=== PATIENT | male | born 1955 | race African-American/Black ===

== ENCOUNTER 2020-08-07 07:05 | Inpatient (IN) | payer MEDICAID, OTHER ==
[~2020-08-07] VITALS: Ht 175.3 cm; Wt 94.9 kg
[2020-08-07] MEDS ORDERED: ONDANSETRON HCL 4MG/2ML INJ IV STA (07:35)
[2020-08-07] MEDS ORDERED: SODIUM CHLORIDE 0.9% 1,000 ML IV ONE (07:45)
[2020-08-07] MEDS ORDERED: MECLIZINE 25MG TABLET PO ONE (07:45)
[2020-08-07 08:05] LABS: BASOPHILS % 0.6 % (0.0-2.0); EOSINOPHILS % 1.2 % (0.0-5.0); HEMATOCRIT. 35.5 % (42.0-52.0); HEMOGLOBIN. 12.3 g/dL (14.0-18.0); LYMPHOCYTES % 26.7 % (20.0-50.0); MEAN CORPUSCULAR HEMOGLOBIN 31.7 pg (28.0-32.0); MEAN CORPUSCULAR VOLUME 91.1 fL (80.0-94.0); MEAN PLATELET VOLUME 7.1 fl (7.4-10.4); MONOCYTES % 12.4 % (2.0-8.0); NEUTROPHILS % 59.1 % (40.0-76.0); PLATELET 406 x1000/uL (130-400); RED CELL DISTRIBUTION WIDTH 14.9 % (11.6-14.6)
[2020-08-07 08:11] LABS: CHLORIDE 99 mEq/L (98-107)
[2020-08-07] MEDS ORDERED: KETOROLAC 30MG/ML VIAL IV ONE (08:45)
[2020-08-07] MEDS ORDERED: AMLODIPINE 10MG TABLET PO ONE (09:15)
[2020-08-07] MEDS ORDERED: HYDRALAZINE 20MG/ML VIAL IV ONE ×2 (18:15→19:15)
[2020-08-07] MEDS ORDERED: MORPHINE SULFATE 4 MG/ML CPJ (NOT FOR IM USE) IV ONE (19:15)
[2020-08-07 20:14] VITALS: BP 191/97
[2020-08-07 20:30] VITALS: BP 191/97
[2020-08-07] MEDS: MORPHINE SULFATE 2 MG/ML CPJ (NOT FOR IM USE) IV PRN (20:45)
[2020-08-07] MEDS ORDERED: ONDANSETRON HCL 4MG/2ML INJ IV PRN (20:45)
[2020-08-07] MEDS: CLONIDINE 0.1MG TABLET PO PRN (21:10)
[2020-08-07 21:24] VITALS: BP 191/97
[2020-08-07] MEDS: ENOXAPARIN 40MG/0.4ML SYR SUBCUT SCH (22:13)
[2020-08-07] MEDS: OXCARBAZEPINE 300MG TABLET PO SCH (22:13)
[2020-08-07] MEDS: DULOXETINE HCL 60MG DR CAPSULE PO SCH (23:24)
[2020-08-08] VITALS: BP 163/100
[2020-08-08] MEDS ORDERED: LISI10TA26 PO (01:01)
[2020-08-08] MEDS ORDERED: GABA-532 PO (01:01)
[2020-08-08] MEDS ORDERED: amlodipine (01:06)
[2020-08-08] MEDS ORDERED: OMEP10CA5 PO (01:10)
[2020-08-08] MEDS ORDERED: OXCA600T20 PO (01:12)
[2020-08-08] MEDS ORDERED: DULO60CA64 PO (01:13)
[2020-08-08] MEDS: MORPHINE SULFATE 2 MG/ML CPJ (NOT FOR IM USE) IV PRN ×4 (01:50→23:42)
[2020-08-08] MEDS: KETOROLAC 30MG/ML VIAL IV PRN (03:53)
[2020-08-08 04:00] VITALS: BP 163/95
[2020-08-08] MEDS: OXCARBAZEPINE 300MG TABLET PO SCH ×3 (05:01→21:06)
[2020-08-08] MEDS: DULOXETINE HCL 60MG DR CAPSULE PO SCH ×3 (05:02→21:07)
[2020-08-08] MEDS: CLONIDINE 0.1MG TABLET PO PRN (05:09)
[2020-08-08 06:42] LABS: HEMATOCRIT. 38.2 % (42.0-52.0); HEMOGLOBIN. 13.5 g/dL (14.0-18.0); MEAN CORPUSCULAR HEMOGLOBIN 31.8 pg (28.0-32.0); MEAN CORPUSCULAR VOLUME 90.2 fL (80.0-94.0); MEAN PLATELET VOLUME 8.4 fl (7.4-10.4); PLATELET 443 x1000/uL (130-400); RED BLOOD CELL COUNT 4.24 mill/uL (4.7-6.1); RED CELL DISTRIBUTION WIDTH 15.1 % (11.6-14.6)
[2020-08-08 06:57] LABS: NEUTROPHILS % 64.5 % (40.0-76.0)
[2020-08-08 06:58] LABS: BASOPHILS % 0.4 % (0.0-2.0); EOSINOPHILS % 0.4 % (0.0-5.0); MONOCYTES % 11.7 % (2.0-8.0); PLATELET ESTIMATE NORMAL
[2020-08-08 07:16] LABS: CHLORIDE 103 mEq/L (98-107)
[2020-08-08 08:00] VITALS: BP 179/113
[2020-08-08] MEDS: AMLODIPINE 10MG TABLET PO SCH (09:08)
[2020-08-08] MEDS: ASPIRIN 81MG TABLET PO SCH (11:01)
[2020-08-08 12:00] VITALS: BP 151/93
[2020-08-08 16:00] VITALS: BP 149/78
[2020-08-08 20:00] VITALS: BP 162/88
[2020-08-08] MEDS: ENOXAPARIN 40MG/0.4ML SYR SUBCUT SCH (21:06)
[2020-08-08] MEDS: ATORVASTATIN CALCIUM 40MG TABLET PO SCH (21:07)
[2020-08-09] VITALS: BP 155/89
[2020-08-09] MEDS: KETOROLAC 30MG/ML VIAL IV PRN ×2 (02:32→10:03)
[2020-08-09 04:00] VITALS: BP 156/105
[2020-08-09] MEDS: DULOXETINE HCL 60MG DR CAPSULE PO SCH ×3 (06:55→21:13)
[2020-08-09] MEDS: OXCARBAZEPINE 300MG TABLET PO SCH ×3 (06:56→21:13)
[2020-08-09 08:00] VITALS: BP 182/111
[2020-08-09] MEDS: ASPIRIN 81MG TABLET PO SCH (08:14)
[2020-08-09] MEDS: MORPHINE SULFATE 2 MG/ML CPJ (NOT FOR IM USE) IV PRN ×3 (08:15→17:31)
[2020-08-09] MEDS: AMLODIPINE 10MG TABLET PO SCH (08:16)
[2020-08-09 12:00] VITALS: BP 161/111
[2020-08-09 16:00] VITALS: BP 181/109
[2020-08-09] MEDS: CLONIDINE 0.1MG TABLET PO PRN ×2 (17:30→23:56)
[2020-08-09] MEDS ORDERED: OXCARBAZEPINE 300MG TABLET PO SCH (18:30)
[2020-08-09] MEDS: CYANOCOBALAMIN 1000MCG TABLET PO SCH (18:36)
[2020-08-09] MEDS ORDERED: AMITRIPTYLINE 25MG TABLET PO NR (19:00)
[2020-08-09 20:00] VITALS: BP 169/112
[2020-08-09] MEDS: ATORVASTATIN CALCIUM 40MG TABLET PO SCH (21:13)
[2020-08-09] MEDS: ENOXAPARIN 30MG/0.3ML SYR SUBCUT SCH (21:14)
[2020-08-10] VITALS: BP 170/108
[2020-08-10 00:32] VITALS: BP 162/99
[2020-08-10 04:00] VITALS: BP 144/96
[2020-08-10] MEDS: OXCARBAZEPINE 300MG TABLET PO SCH (05:18)
[2020-08-10] MEDS: DULOXETINE HCL 60MG DR CAPSULE PO SCH (05:18)
[2020-08-10] MEDS: MORPHINE SULFATE 2 MG/ML CPJ (NOT FOR IM USE) IV PRN (05:19)
[2020-08-10] MEDS: CYANOCOBALAMIN 1000MCG TABLET PO SCH (06:38)
[2020-08-10 07:43] LABS: VITAMIN B12 SERUM 855 pg/mL (211-911)
[2020-08-10 08:00] VITALS: BP 147/87
[2020-08-10] MEDS: ENOXAPARIN 30MG/0.3ML SYR SUBCUT SCH (08:53)
[2020-08-10] MEDS: ASPIRIN 81MG TABLET PO SCH (08:53)
[2020-08-10] MEDS: AMLODIPINE 10MG TABLET PO SCH (08:53)
== END 2020-08-10 12:55 | disposition home or self-care (01) | DRG 422 ==
LOC: ER 07:05 → 5WST 18:11 → ENRESERV 19:05 → 5WST 20:33
PROVIDERS: ADMIT Family Medicine; ATTEND Family Medicine
DX: E86.0 Dehydration (principal); E87.1 Hypo-osmolality and hyponatremia; D47.3 Essential (hemorrhagic) thrombocythemia; I16.0 Hypertensive urgency; D64.9 Anemia, unspecified; G50.0 Trigeminal neuralgia; E78.5 Hyperlipidemia, unspecified; I10 Essential (primary) hypertension; Z86.73 Personal history of transient ischemic attack (TIA), and cerebral infarction without residual deficits; Z86.69 Personal history of other diseases of the nervous system and sense organs
CPT/HCPCS: 36415; 70551; 71045; 80048; 80053; 82607; 83880; 84207; 84484; 85025; 93005; 93306; 97162; 99285; J0360; J1650; J1885; J2270; J2405; J7030; J8597